=== PATIENT | female | born 1965 | race Caucasian/White ===

== ENCOUNTER 2018-05-14 09:38 | Emergency (ER) | payer MEDICAID ==
[~2018-05-14] VITALS: Ht 162.6 cm; Wt 130.0 kg
[~2018-05-14 09:38] MED LIST: DIVA500T2 PO; DIVA500T9 PO; HYDR-4383 PO; LEVO25TA7 PO
[2018-05-14 09:41] VITALS: BP 102/58
== END 2018-05-14 10:48 | disposition home or self-care (01) ==
LOC: ER 09:38
DX: G40.909 Epilepsy, unspecified, not intractable, without status epilepticus (principal); J45.909 Unspecified asthma, uncomplicated; G89.29 Other chronic pain; Z90.49 Acquired absence of other specified parts of digestive tract; Z98.890 Other specified postprocedural states; Z88.0 Allergy status to penicillin; Z91.030 Bee allergy status; Z88.8 Allergy status to other drugs, medicaments and biological substances; Z79.899 Other long term (current) drug therapy; Z59.0 Homelessness; Z60.2 Problems related to living alone; Z56.0 Unemployment, unspecified
CPT/HCPCS: 99284

== ENCOUNTER 2018-05-14 15:33 | Emergency (ER) | payer MEDICAID ==
[2018-05-14 15:47] VITALS: BP 113/68
== END 2018-05-14 16:19 | disposition home or self-care (01) ==
LOC: ER 15:34
DX: G40.909 Epilepsy, unspecified, not intractable, without status epilepticus (principal); I10 Essential (primary) hypertension; J45.909 Unspecified asthma, uncomplicated; G89.29 Other chronic pain; M54.9 Dorsalgia, unspecified; Z56.0 Unemployment, unspecified; Z59.0 Homelessness; Z88.0 Allergy status to penicillin; Z88.8 Allergy status to other drugs, medicaments and biological substances; Z91.030 Bee allergy status
CPT/HCPCS: 99284